=== PATIENT | female | born 1990 | race Caucasian/White ===

== ENCOUNTER 2016-12-23 14:54 | Emergency (ER) | payer OTHER | END 2016-12-23 15:43 | disposition left against medical advice (07) | LOC: UCEAST 14:54 | DX: T14.8 Other injury of unspecified body region (principal); W57.XXXA Bitten or stung by nonvenomous insect and other nonvenomous arthropods, initial encounter; Y93.9 Activity, unspecified; Y92.9 Unspecified place or not applicable; Z53.21 Procedure and treatment not carried out due to patient leaving prior to being seen by health care provider ==

== ENCOUNTER 2017-05-01 19:28 | Emergency (ER) | payer BC, OTHER ==
--- NOTE | 2017-05-01 19:30 | UC ---
Lower Extremity/Ankle HPI - HPI Summary HPI Summary: 27 year old female fell and twisted her left ankle. - History of Current Complaint Stated Complaint: FOOT INJURY Time Seen by Provider: 05/01/17 19:28 Hx Last Menstrual Period: 2 DAYS AGO - Allergies/Home Medications Allergies/Adverse Reactions: Allergies Allergy/AdvReac Type Severity Reaction Status Date / Time ANTIBIOTIC AdvReac Intermediate GI Upset Uncoded 05/01/17 19:35 Home Medications: Home Medications Ibuprofen TAB* [Advil TAB*] 400 mg PO PRN 05/01/17 [History] PMH/Surg Hx/FS Hx/Imm Hx - Surgical History Surgical History: Yes Surgery Procedure, Year, and Place: MOLE REMOVED FROM BACK - Family History Known Family History: Positive: None, Hypertension, Diabetes - Social History Alcohol Use: Weekly Alcohol Amount: 2 GLASSES 3 TIMES/WEEK Substance Use Type: None Smoking Status (MU): Former Smoker Type: Cigarettes Amount Used/How Often: 2 PACKS/WEEK Have You Smoked in the Last Year: Yes Review of Systems Constitutional: Negative Skin: Negative Eyes: Negative ENT: Negative Respiratory: Negative Cardiovascular: Negative Gastrointestinal: Negative Genitourinary: Negative Motor: Negative Neurovascular: Negative Musculoskeletal: Decreased ROM, Other: - left ankle/foot sprain Neurological: Negative Psychological: Negative All Other Systems Reviewed And Are Negative: Yes Physical Exam Triage Information Reviewed: Yes Eye Exam: Normal ENT Exam: Normal Dental Exam: Normal Neck exam: Normal Neck: Positive: 1 Respiratory Exam: Normal Cardiovascular Exam: Normal Abdominal Exam: Normal Musculoskeletal Exam: Normal Musculoskeletal: Positive: Other: - left ankle/foot sprain Neurological Exam: Normal Psychological Exam: Normal Skin Exam: Normal Lower Extremity Course/Dx - Differential Dx/Diagnosis Provider Diagnoses: left foot sprain. left ankle Discharge - Discharge Plan Condition: Stable Disposition: HOME Prescriptions: Meloxicam [Mobic] 7.5 mg PO BID PC #30 tab Patient Education Materials: Ankle Sprain (ED), Foot Sprain (ED) Forms: *Work Release Referrals: Cody HURTADO,Gera Andrade [Primary Care Provider] - If Needed
[2017-05-01 19:35] VITALS: BP 105/54
--- NOTE | 2017-05-01 20:09 | RAD ---
HISTORY: Left ankle and foot injury COMPARISONS: None VIEWS: 6, Frontal, lateral, and oblique views of the left ankle and of the left foot FINDINGS: BONE DENSITY: Normal. BONES: There is no displaced fracture. Incidentally noted is a bone island of the second middle phalanx JOINTS: There is no arthropathy. ALIGNMENT: There is no dislocation. SOFT TISSUES: Unremarkable. OTHER FINDINGS: None. IMPRESSION: NO ACUTE OSSEOUS INJURY TO THE LEFT ANKLE ORIF OF THE LEFT FOOT. IF SYMPTOMS PERSIST, RECOMMEND REPEAT IMAGING.
== END 2017-05-01 20:29 | disposition home or self-care (01) ==
LOC: UCEAST 19:28
DX: S93.402A Sprain of unspecified ligament of left ankle, initial encounter (principal); X50.1XXA Overexertion from prolonged static or awkward postures, initial encounter; W18.39XA Other fall on same level, initial encounter; F17.210 Nicotine dependence, cigarettes, uncomplicated
CPT/HCPCS: 99212; G0463

== ENCOUNTER 2018-01-20 18:10 | Emergency (ER) | payer BC ==
[2018-01-20 21:30] LABS: Urine Appearance Cloudy; Urine Blood Negative (Negative); Urine Color Yellow; Urine Ketones Negative (Negative); Urine Protein Negative (Negative); Urine Specific Gravity 1.015 (1.010-1.030); Urine Urobilinogen Negative (Negative)
[2018-01-21 00:48] VITALS: BP 102/70
--- NOTE | 2018-01-21 08:23 | RAD ---
Indication: Pelvic pain and bloating. Comparison: No relevant prior exams available on the [facility] PACS for comparison. Technique: Transvaginal pelvic ultrasound. Report: Unremarkable 7.7 x 3.9 x 4.9 cm anteverted uterus. Upper normal 14.3 mm endometrium. Nabothian cyst at the cervix. Small volume of free fluid in the anterior cul-de-sac. 3.9 x 2.3 x 3.6 cm RIGHT ovary with documented vascular flow is remarkable for a unilocular anechoic 2.5 cm maximum dimension cyst with some inward directed margins most consistent with a partially decompressed follicular cyst. 3.9 x 3.1 x 3.6 cm LEFT ovary is remarkable for a unilocular 3.0 cm grossly anechoic cyst without complex features consistent with a follicular cyst. Bowel gas limits assessment of blood flow at the LEFT ovary. IMPRESSION: 1. Bilateral ovarian follicular cysts. 2. Normal vascular flow documented at the RIGHT ovary. 3. Assessment for vascular flow at the LEFT ovary is limited due to bowel gas. Absence of ovarian enlargement is evidence against ovarian torsion. Correlate with clinical assessment and consider repeat imaging if there is persistent clinical concern for ovarian torsion.
--- NOTE | 2018-01-25 22:53 | ED ---
Darinel Chicas Sixian, scribed for Erich Perez MD on 01/20/18 at 2053 . Abdominal Pain/Female - HPI Summary HPI Summary: This patient is a 27 year old F presenting to ED with a chief complaint of pelvic pain since a few months ago, worsening since 1815 today. The patient rates the pain 6/10 in severity. Symptoms aggravated and alleviated by nothing. Patient reports frequent urination, abdominal pain, bloating in lower stomach and pelvis, pain during intercourse, back pain, and unprotected intercourse in the past week. Patient denies abnormal vaginal discharge. - History of Current Complaint Chief Complaint: EDAbdPain Stated Complaint: ABD PAIN Time Seen by Provider: 01/20/18 20:39 Hx Obtained From: Patient Hx Last Menstrual Period: 2 DAYS AGO Onset/Duration: Gradual Onset, Lasting Hours, Lasting Weeks, Still Present Timing: Constant Severity Currently: Moderate Pain Intensity: 6 Pain Scale Used: 0-10 Numeric Aggravating Factor(s): Nothing Alleviating Factor(s): Nothing Associated Signs and Symptoms: Positive: Other: - Patient reports frequent urination, abdominal pain, bloating in lower stomach and pelvis, pain during intercourse, back pain, and unprotected intercourse in the past week. Patient denies abnormal vaginal discharge. Allergies/Adverse Reactions: Allergies Allergy/AdvReac Type Severity Reaction Status Date / Time ANTIBIOTIC AdvReac Intermediate GI Upset Uncoded 05/01/17 19:35 PMH/Surg Hx/FS Hx/Imm Hx Endocrine/Hematology History: Denies: Hx Diabetes, Hx Thyroid Disease Cardiovascular History: Denies: Hx Hypertension Respiratory History: Denies: Hx Asthma, Hx Chronic Obstructive Pulmonary Disease (COPD) GI History: Denies: Hx Ulcer Psychiatric History: Reports: Hx Anxiety, Hx Depression - Surgical History Surgery Procedure, Year, and Place: MOLE REMOVED FROM BACK Infectious Disease History: No Infectious Disease History: Denies: Hx Hepatitis, Hx Human Immunodeficiency Virus (HIV), Traveled Outside the [place] in Last 30 Days - Family History Known Family History: Positive: None, Hypertension, Diabetes - Social History Alcohol Use: Weekly Alcohol Amount: 2 GLASSES 3 TIMES/WEEK Substance Use Type: Reports: None Hx Tobacco Use: No Smoking Status (MU): Former Smoker Type: Cigarettes Amount Used/How Often: 2 PACKS/WEEK Have You Smoked in the Last Year: Yes Review of Systems Gastrointestinal: Other - pelvic pain Positive: Abdominal Pain Genitourinary: Negative - abnormal vaginal discharge, Other - bloating in lower stomach and pelvis, pain during intercourse Positive: frequency - frequent urination Musculoskeletal: Other - back pain All Other Systems Reviewed And Are Negative: Yes Physical Exam - Summary Physical Exam Summary: Appearance: Well-appearing, no distress, Well-nourished Skin: Warm, color reflects adequate perfusion Head: Normal Head/Face inspection Eyes: Conjunctiva clear ENT: Normal inspection Neck: Supple, no nodes, no JVD. Respiratory: Lungs clear, Normal breath sounds, no respiratory distress Cardio: RRR, No murmur, pulses normal, brisk capillary refill Abdomen: soft, no guarding, no rebound, suprapubic tenderness Bowel sounds: present Musculoskeletal: Strength Intact/ ROM intact. No calf tenderness. No edema. Neuro: Alert, muscle tone normal, facial symmetry, speech normal, sensory/motor intact Psychological: Normal Triage Information Reviewed: Yes Vital Signs On Initial Exam: Initial Vitals Temp Pulse Resp BP Pulse Ox 98.4 F 61 18 109/54 100 01/20/18 18:12 01/20/18 18:12 01/20/18 18:12 01/20/18 18:12 01/20/18 18:12 Vital Signs Reviewed: Yes Diagnostics - Vital Signs Vital Signs Temp Pulse Resp BP Pulse Ox 01/20/18 18:12 98.4 F 61 18 109/54 100 - Laboratory Lab Results: Lab Results 01/20/18 01/20/18 Range/Units 21:00 21:00 Beta HCG, Quant < 0.60 mIU/mL Urine Color Yellow Urine Appearance Cloudy Urine pH 8.0 (5-9) Ur Specific [place] 1.015 (1.010-1.030) Urine Protein Negative (Negative) Urine Ketones Negative (Negative) Urine Blood Negative (Negative) Urine Nitrate Negative (Negative) Urine Bilirubin Negative (Negative) Urine Urobilinogen Negative (Negative) Ur Leukocyte Esterase Negative (Negative) Urine Glucose Negative (Negative) Lab Statement: Any lab studies that have been ordered have been reviewed, and results considered in the medical decision making process. - Additional Comments Diagnostic Additional Comments: US pelvic reveals the uterus is normal in size and echogenicity. The endometrium is mildly prominent in double wall thickness measuring 1.4 cm although within normal secretory phase appearance. There are multiple small nabothian cysts. The ovaries are normal in size. There are bilateral simple ovarian cysts measuring 2.5x1.9x1.6 cm right and 3.0x2.9x2.7 cm left. Arterial flow is demonstrated to the right ovary on Doppler evaluation. Doppler assessment of the left ovary could not be performed secondary to overlying bowel gas. No adnexal masses visualized. Small amount of free fluid in the anterior cul-de-sac may be incidental physiologic fluid. ED physician has reviewed this radiology report. Re-Evaluation - Re-Evaluation First Eval Re-Evaluation Time: 00:35 Change: Improved - pt resting comfortably in bed. pt continues to be asymptomatic. Plan for symptomatic tx with DRAWSTRING KNOTTER f/u. Abdominal Pain Fem Course/Dx - Diagnoses Differential Diagnosis: Positive: Constipation, Ovarian Cyst, Pancreatitis, , Renal Colic, Urinary Tract Infection Provider Diagnoses: Ovarian cyst Discharge - Sign-Out/Discharge Documenting (check all that apply): Discharge - Discharge Plan Condition: Improved Disposition: HOME Patient Education Materials: Ovarian Cyst (ED) Referrals: Lemuel Snow MD [Medical Doctor] - 3 Days Additional Instructions: RETURN TO THE EMERGENCY DEPARTMENT FOR CHANGING OR WORSENING SYMPTOMS. YOUR ULTRASOUND TODAY SHOWS OVARIAN CYSTS RIGHT MEASURES - 2.5CM AND LEFT MEASURES - 3.0CM. - Billing Disposition and Condition Condition: IMPROVED Disposition: HOME The documentation as recorded by the Darinel causey Sixian accurately reflects the service I personally performed and the decisions made by , Erich Perez MD.
== END 2018-01-21 00:48 | disposition home or self-care (01) ==
LOC: ED 18:10
DX: N83.209 Unspecified ovarian cyst, unspecified side (principal); R10.2 Pelvic and perineal pain; Z87.891 Personal history of nicotine dependence; M54.9 Dorsalgia, unspecified
CPT/HCPCS: 36415; 76830; 81003; 84702; 99282

== ENCOUNTER 2018-11-28 15:26 | Emergency (ER) | payer BC ==
--- NOTE | 2018-11-28 17:53 | ED ---
HPI Chest Pain - HPI Summary HPI Summary: Pt is a 28 y/o female who presents to the ED c/o CP. Shes had intermittent right upper chest pain for the past few days. However today the CP has been constant after taking a jog this morning. Pt also c/o intermittent abdominal pain, and currently has a STEVENS associated with dizziness. She was also near- syncopal 2 days ago. Pt is concerned that she has a thyroid issue because of her low resting metabolic rate and difficulty losing weight. She is currently in recovery from bulimia and is seeing a corn sheller. Pt has bloodwork done 1 week ago with unusual results: her lipid metabolic rate is five times lower than average and her protein metabolism rate is five times higher than average. LNMP 1 week ago. - History of Current Complaint Chief Complaint: EDChestWallPain Time Seen by Provider: 11/28/18 17:33 Hx Obtained From: Patient Hx Last Menstrual Period: 2 DAYS AGO Onset/Duration: Started Days Ago - 2-3, Still Present Timing: Constant - now, Intermittent - past few days Current Severity: Moderate Pain Intensity: 3 Pain Scale Used: 0-10 Numeric Chest Pain Location: Right Anterior Chest Pain Radiates: No Aggravating Factor(s): Exertion Alleviating Factor(s): Nothing Associated Signs and Symptoms: Positive: Chest Pain, Headaches, Dizziness - Allergy/Home Medications Allergies/Adverse Reactions: Allergies Allergy/AdvReac Type Severity Reaction Status Date / Time unk antibiotic Allergy GI Upset Uncoded 11/28/18 17:55 Home Medications: Home Medications L.acidoph,Paracasei, B.lactis [Probiotic] 1 cap PO DAILY 11/28/18 [History Confirmed 11/28/18] PMH/Surg Hx/FS Hx/Imm Hx Endocrine/Hematology History: Denies: Hx Diabetes, Hx Thyroid Disease Cardiovascular History: Denies: Hx Hypertension Respiratory History: Denies: Hx Asthma, Hx Chronic Obstructive Pulmonary Disease (COPD) GI History: Denies: Hx Ulcer Neurological History: Denies: Hx Migraine Psychiatric History: Reports: Hx Anxiety, Hx Eating Disorder - Bulimia, Hx Depression - Surgical History Surgery Procedure, Year, and Place: MOLE REMOVED FROM BACK Infectious Disease History: No Infectious Disease History: Denies: Hx Hepatitis, Hx Human Immunodeficiency Virus (HIV), Traveled Outside the [place] in Last 30 Days - Family History Known Family History: Positive: Hypertension, Diabetes - Social History Alcohol Use: Weekly Alcohol Amount: 2 GLASSES 3 TIMES/WEEK Hx Substance Use: No Substance Use Type: Reports: None Hx Tobacco Use: Yes Smoking Status (MU): Former Smoker Type: Cigarettes Amount Used/How Often: 2 PACKS/WEEK Have You Smoked in the Last Year: Yes Review of Systems Positive: Chest Pain Positive: Abdominal Pain Neurological: Other - Dizziness Positive: Headache, Syncope - Near All Other Systems Reviewed And Are Negative: Yes Physical Exam - Summary Physical Exam Summary: GENERAL: Patient is a well-developed and nourished M who is lying comfortable in the stretcher. Patient is not in any acute respiratory distress. HEAD AND FACE: Normocephalic EYES: PERRLA, EOMI x 2. EARS: Hearing grossly intact. MOUTH: Oropharynx within normal limits. NECK: Supple, trachea is midline, no adenopathy, no JVD, no carotid bruit. CHEST: Symmetric, no tenderness at palpation LUNGS: Clear to auscultation bilaterally. No wheezing or crackles. CVS: Regular rate and rhythm, S1 and S2 present, no murmurs or gallops appreciated. ABDOMEN: Soft, non-tender. Bowel sounds are normal. No abdominal abnormal pulsations. EXTREMITIES: Full ROM in all major joints, no edema, no cyanosis or clubbing. NEURO: Alert and oriented x 3. No acute neurological deficits. Speech is normal and follows commands. SKIN: Dry and warm Triage Information Reviewed: Yes Vital Signs On Initial Exam: Initial Vitals Temp Pulse Resp BP Pulse Ox 97.8 F 70 16 111/62 100 11/28/18 16:01 11/28/18 16:01 11/28/18 16:01 11/28/18 16:01 11/28/18 16:01 Vital Signs Reviewed: Yes Diagnostics - Vital Signs Vital Signs Temp Pulse Resp BP Pulse Ox 11/28/18 16:01 97.8 F 70 16 111/62 100 - Laboratory Result Diagrams: 11/28/18 18:01 11/28/18 18:01 Lab Statement: Any lab studies that have been ordered have been reviewed, and results considered in the medical decision making process. - Radiology CXR Radiology Interpretation Completed By: Radiologist Summary of Radiographic Findings: No active cardiopulmonary disease is noted. ED physician reviewed radiology report. - EKG 16:35 Cardiac Rate: Bradycardia - 56 bpm EKG Rhythm: Sinus Rhythm Summary of EKG Findings: Nl axis Re-Evaluation - Re-Evaluation First Eval Re-Evaluation Time: 18:35 Change: Unchanged Comment: Pt denies pain medications. She was informed of her elevated BUN and advised to hydrate. Chest Pain Course/Dx - Course Course Of Treatment: Pt is a 28 y/o female who presents to the ED c/o CP. A CXR was negative. An EKG revealed bradycardia at a rate of 56 bpm. Workup was otherwise unremarkable. Patient will be discharged with a final dx of chest pain. - Diagnoses Provider Diagnoses: Chest pain Discharge - Sign-Out/Discharge Documenting (check all that apply): Patient Departure - Discharge Patient Received Moderate/Deep Sedation with Procedure: No - Discharge Plan Condition: Stable Disposition: HOME Patient Education Materials: Chest Pain (ED) Referrals: [facility] [place] PHYSICIAN REFERRAL [Outside] Ishan Negron MD [Medical Doctor] - (1-3 days) Additional Instructions: Follow up with your primary care physician in 1-3 days. RETURN TO THE EMERGENCY DEPARTMENT FOR CHANGING OR WORSENING SYMPTOMS. - Billing Disposition and Condition Condition: STABLE Disposition: Home - Attestation Statements Document Initiated by Scribe: Yes Documenting Scribe: Fabi Horan Provider For Whom Scribe is Documenting (Include Credential): Claudia Martinez MD Scribe Attestation: Fabi Chicas scribed for Claudia Martinez MD on 11/29/18 at 1827. Scribe Documentation Reviewed: Yes Provider Attestation: The documentation as recorded by the Fabi causey accurately reflects the service I personally performed and the decisions made by , Claudia Martinez MD Status of Scribe Document: Viewed
[2018-11-28 18:10] LABS: ABS Basophils 0.1 10^3/ul (0-0.2); ABS Eosinophils 0.1 10^3/ul (0-0.6); ABS Lymphocytes 2.1 10^3/ul (1.0-4.8); ABS Monocytes 0.6 10^3/ul (0-0.8); ABS Neutrophils 3.5 10^3/ul (1.5-7.7); ABS Nucleated RBC 0 10^3/ul; Hematocrit 33 % (35-47); Hemoglobin 11.1 g/dl (12.0-16.0); Lymphocyte % 33.3 %; Mean Corpuscular HGB Conc 34 g/dl (31-36); Mean Corpuscular Hemoglobin 29 pg (27-31); Mean Corpuscular Volume 88 fL (80-97); Mean Platelet Volume 8.9 fL (7.4-10.4); Nucleated Red Blood Cells % 0; Platelet Count 235 10^3/ul (150-450); Red Blood Count 3.76 10^6/ul (4.00-5.40); Red Cell Distribution Width 14 % (10.5-15); White Blood Count 6.5 10^3/ul (3.5-10.8)
[2018-11-28 18:21] LABS: Activated Partial Thrombo Time 30.2 seconds (26.0-36.3)
[2018-11-28 18:28] LABS: ALT 17 U/L (7-52); AST 19 U/L (13-39); Albumin 4.2 g/dL (3.2-5.2); Albumin/Globulin Ratio 1.9 (1-3); Alkaline Phosphatase 38 U/L (34-104); Anion Gap 4 mmol/L (2-11); BUN/Creatinine Ratio 41.9 (8-20); Blood Urea Nitrogen 31 mg/dL (6-24); CO2 Carbon Dioxide 29 mmol/L (22-32); Calcium 9.2 mg/dL (8.6-10.3); Chloride 105 mmol/L (101-111); EGFR African American 112.3 (>60); EGFR Non-African American 92.8 (>60); Globulin 2.2 g/dL (2-4); Glucose 80 mg/dL (70-100); Potassium 3.7 mmol/L (3.5-5.0); Sodium 138 mmol/L (135-145); Total Protein 6.4 g/dL (6.4-8.9)
[2018-11-28 18:34] LABS: HCG Pregnancy < 0.60 mIU/mL
[2018-11-28 19:05] LABS: TSH (Thyroid Stimulating Horm) 1.97 mcIU/mL (0.34-5.60)
[2018-11-28 19:31] VITALS: BP 104/61
== END 2018-11-28 19:30 | disposition home or self-care (01) ==
LOC: ED 15:26
DX: R07.9 Chest pain, unspecified (principal); R51 Headache; R42 Dizziness and giddiness; Z87.891 Personal history of nicotine dependence; R10.9 Unspecified abdominal pain
CPT/HCPCS: 36415; 71046; 80053; 83605; 84443; 84484; 84702; 85025; 85379; 85730; 93005; 99282